=== PATIENT | female | born 1950 | race Caucasian/White ===

== ENCOUNTER 2017-04-06 09:15 | Outpatient (RCR) | payer OTHER | END 2017-04-22 | disposition home or self-care (01) | LOC: PTY 09:15 | DX: M54.42 Lumbago with sciatica, left side (principal); M54.41 Lumbago with sciatica, right side; G89.29 Other chronic pain; R26.89 Other abnormalities of gait and mobility | CPT/HCPCS: 97110; 97162; G0283 ==

== ENCOUNTER 2017-05-18 09:15 | Outpatient (RCR) | payer OTHER | END 2017-05-20 | disposition home or self-care (01) | LOC: PTY 09:15 | DX: M54.42 Lumbago with sciatica, left side (principal); M54.41 Lumbago with sciatica, right side; I10 Essential (primary) hypertension; S80.02XD Contusion of left knee, subsequent encounter; M17.12 Unilateral primary osteoarthritis, left knee | CPT/HCPCS: 97110; 97140; G0283 ==

== ENCOUNTER 2017-05-22 09:01 | Outpatient (RCR) | payer OTHER | END 2017-06-20 | disposition home or self-care (01) | LOC: PTY 09:01 | DX: S80.02XD Contusion of left knee, subsequent encounter (principal); M17.12 Unilateral primary osteoarthritis, left knee | CPT/HCPCS: 97110; 97140; G0283 ==

== ENCOUNTER 2017-07-08 08:10 | Outpatient (RCR) | payer OTHER | END 2017-07-20 | disposition home or self-care (01) | LOC: PTY 08:10 | DX: S80.02XD Contusion of left knee, subsequent encounter (principal); M17.12 Unilateral primary osteoarthritis, left knee ==

== ENCOUNTER 2017-07-27 09:08 | Outpatient (RCR) | payer OTHER | END 2017-08-20 | disposition home or self-care (01) | LOC: PTY 09:08 | DX: M17.12 Unilateral primary osteoarthritis, left knee (principal); S80.02XD Contusion of left knee, subsequent encounter; X58.XXXD Exposure to other specified factors, subsequent encounter ==

== ENCOUNTER 2017-09-16 09:00 | Outpatient (RCR) | payer OTHER | END 2017-09-19 | disposition home or self-care (01) | LOC: PTY 09:00 | DX: M17.12 Unilateral primary osteoarthritis, left knee (principal); S80.02XD Contusion of left knee, subsequent encounter; X58.XXXD Exposure to other specified factors, subsequent encounter ==

== ENCOUNTER 2017-09-30 12:50 | Outpatient (RCR) | payer OTHER | END 2017-10-20 | disposition home or self-care (01) | LOC: PTY 12:50 | DX: S80.02XD Contusion of left knee, subsequent encounter (principal); M17.12 Unilateral primary osteoarthritis, left knee; X58.XXXD Exposure to other specified factors, subsequent encounter ==

== ENCOUNTER 2017-10-23 13:10 | Outpatient (RCR) | payer OTHER | END 2017-11-20 | disposition home or self-care (01) | LOC: PTY 13:10 | DX: S80.02XD Contusion of left knee, subsequent encounter (principal); M17.12 Unilateral primary osteoarthritis, left knee; X58.XXXD Exposure to other specified factors, subsequent encounter ==

== ENCOUNTER 2017-12-03 12:50 | Outpatient (RCR) | payer OTHER | END 2017-12-20 | disposition home or self-care (01) | LOC: PTY 12:50 | DX: M54.42 Lumbago with sciatica, left side (principal); M54.41 Lumbago with sciatica, right side ==

== ENCOUNTER 2017-12-24 13:50 | Outpatient (RCR) | payer OTHER | END 2018-01-20 | disposition home or self-care (01) | LOC: PTY 13:50 | DX: M54.42 Lumbago with sciatica, left side (principal); M54.41 Lumbago with sciatica, right side; M25.562 Pain in left knee; G89.29 Other chronic pain | CPT/HCPCS: 97110; G0283 ==

== ENCOUNTER 2018-01-26 13:45 | Outpatient (RCR) | payer OTHER | END 2018-02-19 | disposition home or self-care (01) | LOC: PTY 13:45 | DX: M54.42 Lumbago with sciatica, left side (principal); M54.41 Lumbago with sciatica, right side; M25.562 Pain in left knee; G89.29 Other chronic pain; I10 Essential (primary) hypertension; E03.9 Hypothyroidism, unspecified; G47.00 Insomnia, unspecified; R29.6 Repeated falls; N32.81 Overactive bladder; H91.93 Unspecified hearing loss, bilateral; F32.9 Major depressive disorder, single episode, unspecified; Z79.82 Long term (current) use of aspirin; M17.12 Unilateral primary osteoarthritis, left knee; E66.01 Morbid (severe) obesity due to excess calories; Z68.34 Body mass index [BMI] 34.0-34.9, adult ==